=== PATIENT | female | born 1970 | race Two or more races ===

== ENCOUNTER 2016-11-23 15:38 | Emergency (ER) | payer MEDICAID, OTHER ==
[~2016-11-23] VITALS: Ht 165.1 cm; Wt 61.2 kg
[~2016-11-23 15:38] MED LIST: ALBUTEROL SULF8.5 GM INH; AZITHROMYCIN250 MG ORAL
[2016-11-23 15:52] VITALS: BP 121/83
[2016-11-23] MEDS ORDERED: NKM (15:58)
[2016-11-23] MEDS ORDERED: Ketorolac 60mg Inj IM ONE (16:30)
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
[2016-11-23] MEDS ORDERED: Propofol 10mg/ml 20ml IV ONE (17:30)
[2016-11-23 17:37] VITALS: BP 111/69
[2016-11-23 17:50] VITALS: BP 109/69
[2016-11-23 17:55] VITALS: BP 106/74
[2016-11-23] MEDS ORDERED: IBUPROFEN600 MG ORAL (18:01)
[2016-11-23 19:05] VITALS: BP 106/74
--- NOTE | 2016-11-24 11:20 | Diagnostic Imaging Report ---
Indication: Acute mandible trauma Comparison: None Findings: 4 views of the mandible performed. No acute fracture of the mandible is identified. No obvious malalignment of the TMJ identified. Soft tissues are unremarkable. Impression: No acute injury identified
== END 2016-11-23 19:05 | disposition home or self-care (01) ==
LOC: EMR 16:20
DX: S03.02XA Dislocation of jaw, left side, initial encounter (principal); X50.9XXA Other and unspecified overexertion or strenuous movements or postures, initial encounter; Y92.89 Other specified places as the place of occurrence of the external cause
CPT/HCPCS: 21480; 70110; 96360; 96372; 99284; J2704; J7040; Z7502